=== PATIENT | male | born 1965 | race Caucasian/White ===

== ENCOUNTER 2016-10-20 11:42 | Observation (INO) | payer BC ==
--- NOTE | ~2016-10-20 | HP ---
History And Physical [address] [place]. [address] NAME: TALON EWING : 61 STATUS : ADM Jackelyn PAT#: [id number] AGE: 51 ADM/REG DATE : 10/20/16 MR#: [id number] REPORT SERV DATE: 10/21/16 DICTATED BY: BETSY ALCANTAR DATE: 10/21/16 REPORT STATUS : Draft TRANSCRIBED BY: MODJavad DATE: 10/21/16 DATE OF ADMISSION: 10/20/2016 PRIMARY CARE PHYSICIAN: Dr. Stephani Shrestha. CHIEF COMPLAINT: Left arm, shoulder, and chest pain. HISTORY OF PRESENT ILLNESS: This is a 51-year-old male with cardiovascular risk factors of hypertension, but no prior coronary artery disease who states approximately 2-week history of left shoulder "discomfort." He states it is more noticeable in the evening hours or when he is lying on his side but over the last couple of days it seemed to be getting worse accompanied with pain in the left side of the chest and the left arm, 7/10 in intensity at its worst. There was no accompanying shortness of breath, nausea, or diaphoresis. He came to our emergency department for further evaluation around 11:30 yesterday. He received full dose aspirin and was admitted to Chest Pain Observation Unit. He states he had no pain through the night and actually slept well for the first time in several nights. Currently, his left shoulder discomfort is 1/10 in severity. It is not reproducible with range of motion on that left shoulder although it is somewhat elicited to palpation over the left trapezius muscle. The patient denies personal history for VT, CVA, PE or DVT. He does mention a stress test three to four years ago when he was having dyspnea on exertion. These tests were reportedly normal. He is morbidly obese and does mention that he snores at night. at his bedside agrees. He has never been diagnosed with sleep apnea. Denies personal history for diabetes. He does state problems with a lot of chest congestion over the winter and cough following flu earlier this winter. He had steroid injection and started on antibiotics with completion several weeks ago. No recent fever, cough, or chills. MEDICAL HISTORY: 1. Morbid obesity. 2. Hypertension. 3. Asthma. 4. BPH. SURGICAL HISTORY: 1. Bilateral knee ACLS surgery around 2002. 2. Left rotator cuff repair in 2008. 3. Heel spurs, bilateral. HOME MEDICATIONS: ProAir 2 puffs inhaled b.i.d. p.r.n. shortness of breath; Symbicort 160/4.5 two puffs b.i.d.; capsaicin p.r.n. back pain; glucosamine chondroitin 2 tablets daily; ibuprofen 800 b.i.d. p.r.n.; Singulair 10 mg daily; multivitamin daily; Flomax 0.4 mg daily; Micardis 40 mg daily. ALLERGIES: LISINOPRIL CAUSES COUGH. History And Physical [address] [address] NAME: TALON EWING : 61 STATUS : ADM Jackelyn PAT#: [id number] AGE: 51 ADM/REG DATE : 10/20/16 MR#: [id number] REPORT SERV DATE: 10/21/16 DICTATED BY: BETSY ALCANTAR DATE: 10/21/16 REPORT STATUS : Draft TRANSCRIBED BY: PIERO DATE: 10/21/16 SOCIAL HISTORY: The patient is with at bedside. They have 3 grown children. He quit smoking in 1991. He admits to perhaps 1 beer per week. Denies illicit drug use. 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 FAMILY HISTORY: Father has coronary artery disease with a stent at age 57, alive at 83. No premature deaths from cardiovascular disease among first-degree relatives. REVIEW OF SYSTEMS: Negative except as indicated above. PHYSICAL EXAMINATION: VITAL SIGNS: Blood pressure currently 213/100, heart rate 70s, temperature 97.8, pulse oximetry 97% on room air, BMI 46.4. GENERAL: Well developed, well nourished, in no acute distress. HEENT: Anicteric. Normal EOM. Head normocephalic. PERRLA, no xanthelasma. NECK: Supple. No JVD. Carotids normal without bruits. LUNGS: Clear to auscultation bilaterally anterior and posterior. Respirations even and unlabored. CARDIAC: S1, S2 regular rate and rhythm. No murmurs, rubs, or gallops. No chest wall tenderness. ABDOMEN: Normal bowel sounds. Soft and nontender to palpation. No masses or organomegaly. EXTREMITIES: Trace edema to the bilateral lower extremities. Normal distal pulses. No calf tenderness. There is some tenderness to palpation over the left scapula and trapezius area. SKIN: Warm and dry. Normal turgor. No pallor or cyanosis. MUSCULOSKELETAL: Moving all extremities x4. Normal muscle strength. NEURO/PSYCH: Alert and oriented with appropriate affect. LABORATORY DATA: White blood count 11.2, hemoglobin 14.1, hematocrit 40.6. D-dimer 0.67. Sodium 141, potassium 4.8, BUN 32, creatinine 1.5. Troponin less than 0.02 x2. Chest x-ray shows no acute cardiopulmonary processes. CTA of the chest obtained for atypical chest pain and abnormal D-dimer showing no indication of pulmonary embolism and no aortic abnormalities. Coronaries were not calcified. ASSESSMENT AND PLAN: 1. Atypical chest pain in this 51-year-old, morbidly obese male with cardiovascular risk factor of hypertension. There is also component of left shoulder pain. He has been observed overnight in the Chest Pain Observation Unit, is negative for acute coronary syndrome. Recommend pursuing a cardiac PET scan today. If this is low risk, we will plan to discharge him home and consider musculoskeletal etiology for his chest pain. He has been taking ibuprofen twice a day at home with some relief, although his kidney function is currently abnormal. So I would not recommend this currently. We will arrange follow up with his primary care physician. 2. Hypertension with systolic blood pressure as high as the low 200s. The patient has been given clonidine by the nursing staff. We will continue to monitor and add amlodipine 5 mg daily on discharge. I have instructed the patient to take daily blood pressure logs and to bring that with him to his primary care physician. I have also History And Physical [address] [place]. [address] NAME: TALON EWING : 61 STATUS : ADM Jackelyn PAT#: [id number] AGE: 51 ADM/REG DATE : 10/20/16 MR#: [id number] REPORT SERV DATE: 10/21/16 DICTATED BY: BETSY ALCANTAR DATE: 10/21/16 REPORT STATUS : Draft TRANSCRIBED BY: MODJavad DATE: 10/21/16 encouraged weight loss. 3. Acute kidney injury with creatinine of 1.5. The patient has been taking ibuprofen and he also obtained a CT of the chest last night. I will plan to start IV fluids, total of 500 mL this morning and recheck BMP prior to discharge. 4. Morbid obesity. Encouraged exercise. I have also instructed the patient to follow up with his primary care physician regarding a formal sleep study as he does have some symptoms consistent with sleep apnea. LISSETH/PIERO Betsy Alcantar NP / [id number]
[~2016-10-20 11:42] MED LIST: DENIES HOME MEDS
[2016-10-20 13:08] LABS: BASOPHILS 0.2 %; BASOPHILS ABSOLUTE 0.02 10/3/uL (0.0-0.16); EOSINOPHILS ABSOLUTE 0.22 10/3/uL (0.0-0.53); ER CBC TAT 0 Hrs 07 Mins; HEMATOCRIT 40.6 % (40.0-51.0); HEMOGLOBIN 14.1 g/dL (13.6-17.8); IMMATURE GRANULOCYTES 0.5 %; IMMATURE GRANULOCYTES ABSOLUTE 0.06 10/3/uL (0.0-0.11); LYMPHOCYTES 11.9 %; LYMPHOCYTES ABSOLUTE 1.33 10/3/uL (0.67-4.30); MEAN CORPUS HGB CONC 34.7 g/dL (32.0-36.0); MEAN CORPUSCULAR VOLUME 89.2 fL (80-100); MEAN PLATELET VOLUME 9.8 fL (9.2-13.0); MONOCYTES ABSOLUTE 0.23 10/3/uL (0.21-1.20); NEUTROPHILS 83.4 %; NEUTROPHILS ABSOLUTE 9.36 10/3/uL (2.02-8.40); PLATELET COUNT 227 10/3/uL (150-400); RBC DISTRIBUTION WIDTH 13.8 % (12.0-16.0); RED CELL COUNT 4.55 10/6/uL (4.7-6.1); WHITE BLOOD CELLS 11.2 10/3/uL (4.5-10.5)
[2016-10-20 13:10] LABS: MANUAL DIFF NO %
[2016-10-20 13:14] LABS: PARTIAL THROMBO TIME 29.7 SEC (22.5-37.2); PROTIME (NOT ORD) 12.6 SEC (12.0-14.5)
[2016-10-20 13:17] LABS: D-DIMER QUANTITATIVE 0.67 ug/mLFEU (< 0.50)
[2016-10-20 13:21] LABS: CALCIUM, SERUM 9.7 MG/DL (8.5-10.4); CHEST PAIN PROFILE TAT 0 Hrs 20 Mins; CHLORIDE, SERUM 109 MMOL/L (96-112); CO2 (CARBON DIOXIDE) 26 MMOL/L (24-34); GLUCOSE, SERUM 124 MG/DL (60-99); SODIUM, SERUM 141 MMOL/L (135-148); TROPONIN I <0.02 NG/ML (<0.05)
[2016-10-20 13:22] LABS: BUN (BLOOD UREA NITROGEN) 32 MG/DL (6-23); CREATININE 1.58 MG/DL (0.70-1.30); GFR AFRICAN AMERICAN 57 ML/MIN (>=60); GFR NON AFRICAN AMERICAN 49 ML/MIN (>=60); POTASSIUM, SERUM 4.8 MMOL/L (3.5-5.3)
[2016-10-20] MEDS ORDERED: FLOMAX4 PO (15:45)
[2016-10-20] MEDS ORDERED: MICARDIS40 PO (15:45)
[2016-10-20] MEDS ORDERED: SYMBICORT 160/41 INH INH (15:46)
[2016-10-20] MEDS ORDERED: MULTIVITAMI1 PO (15:46)
[2016-10-20] MEDS ORDERED: PROAIR HFA INH (15:46)
[2016-10-20] MEDS ORDERED: GLUCCHONDR PO (15:46)
[2016-10-20] MEDS ORDERED: SINGULAIR1 PO (15:46)
[2016-10-20] MEDS ORDERED: MOTRIN IB200 MG PO (15:47)
[2016-10-20] MEDS ORDERED: SALONPAS-HOT TOP (15:47)
[2016-10-21] MEDS ORDERED: NORV5 PO ×2 (09:26→13:23)
[2016-10-21 12:33] LABS: BUN (BLOOD UREA NITROGEN) 31 MG/DL (6-23); CALCIUM, SERUM 8.9 MG/DL (8.5-10.4); CHLORIDE, SERUM 109 MMOL/L (96-112); CO2 (CARBON DIOXIDE) 26 MMOL/L (24-34); CREATININE 1.48 MG/DL (0.70-1.30); GFR AFRICAN AMERICAN 62 ML/MIN (>=60); GFR NON AFRICAN AMERICAN 53 ML/MIN (>=60); SODIUM, SERUM 142 MMOL/L (135-148)
[2016-10-21 12:34] LABS: GLUCOSE, SERUM 94 MG/DL (60-99)
== END 2016-10-21 13:59 | disposition home or self-care (01) ==
LOC: ER 11:42 → CDU1 19:53
PROVIDERS: Emergency Medicine; Nurse Practitioner
DX: R07.89 Other chest pain (principal); E66.01 Morbid (severe) obesity due to excess calories; I10 Essential (primary) hypertension; J45.909 Unspecified asthma, uncomplicated; Z98.890 Other specified postprocedural states; Z79.899 Other long term (current) drug therapy; Z88.8 Allergy status to other drugs, medicaments and biological substances; Z87.891 Personal history of nicotine dependence; N17.9 Acute kidney failure, unspecified; Z68.42 Body mass index [BMI] 45.0-49.9, adult
CPT/HCPCS: 71020; 71275; 78492; 80048; 83735; 83880; 84484; 85025; 85379; 85610; 85730; 93005; 93017; 99285; A9270-GY; A9555; G0378; J2785